=== PATIENT | female | born 1960 ===

== ENCOUNTER 2017-06-10 11:17 | Emergency (ER) | payer BC, OTHER ==
[2017-06-10] MEDS ORDERED: Ibuprofen 600 MG Tab PO ONE (11:37)
--- NOTE | 2017-06-10 11:49 | EDM.PDOC ---
ED HPI GENERAL MEDICAL PROBLEM - General Chief Complaint: Lower Extremity Injury/Pain Stated Complaint: FOOT INJURY Time Seen by Provider: 06/10/17 11:30 Source of Information: Reports: Patient History Limitations: Reports: No Limitations - History of Present Illness INITIAL COMMENTS - FREE TEXT/NARRATIVE: 56-year-old female presents for evaluation and treatment of pain to the right lateral foot. Apparently the injury occurred about 1045 this morning. 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 She reports immediate pain to the right lateral foot. She has able to bear weight on the foot but this causes significant pain and she has been limping. No numbness or tingling to the foot. Pain with range of motion. Bruising present to the lateral foot. No previous injury. Onset: Today Onset Date: 06/10/17 Onset Time: 10:45 Location: Reports: Lower Extremity, Right Right Feet Pain Score (Numeric/FACES): 6 - Related Data Allergies Allergy/AdvReac Type Severity Reaction Status Date / Time No Known Allergies Allergy Verified 05/15/14 12:59 Home Meds: Home Meds Alendronate Sodium [Alendronate] 70 mg PO ASDIRECTED 05/15/14 [History] Ascorbate Calcium [Vitamin C] 500 mg PO DAILY 05/15/14 [History] Calcium Carbonate/Vitamin D3 [Calcium 600-Vit D3 400 Tablet] 2 tab PO DAILY 05/19 [History] Cholecalciferol (Vitamin D3) [Vitamin D3] 2,000 units PO DAILY 05/15/14 [History ] Eletriptan [Relpax] 40 mg PO ASDIRECTED PRN 05/15/14 [History] Potassium Chloride [Klor-Con 10] 10 meq PO DAILY 05/15/14 [History] Vitamin E 400 units PO DAILY 05/15/14 [History] Acetaminophen/HYDROcodone [Lynd 325-5 MG] 1 tab PO Q6H PRN #15 tablet 06/10/17 [Rx] Past Medical History Musculoskeletal History: Reports: Other (See Below) Other Musculoskeletal History: osteopenia Neurological History: Reports: Migraines Oncologic (Cancer) History: Reports: Breast - Past Surgical History Cardiovascular Surgical History: Reports: Other (See Below) Other Cardiovascular Surgeries/Procedures: low potassiuim level unknown reason Social & Family History - Tobacco Use Smoking Status *Q: Never Smoker - Caffeine Use Caffeine Use: Reports: Soda - Alcohol Use Days Per Week of Alcohol Use: 0 Number of Drinks Per Day: 0 Total Drinks Per Week: 0 - Recreational Drug Use Recreational Drug Use: No Drug Use in Last 12 Months: No - Living Situation & Occupation Living situation: Reports: Occupation: Employed Review of Systems - Review of Systems Review Of Systems: See Below Musculoskeletal: Reports: Foot Pain (right lateral foot), Other (decreased ROM ) Skin: Reports: Bruising (right lateral foot). Denies: Wound Neurological: Reports: Difficulty Walking. Denies: Numbness, Tingling ED EXAM, GENERAL - Physical Exam Exam: See Below Exam Limited By: No Limitations General Appearance: Alert, WD/WN, No Apparent Distress Respiratory/Chest: No Respiratory Distress Cardiovascular: Normal Peripheral Pulses, Regular Rate, Rhythm Peripheral Pulses: 2+: Posterior Tibial (R), Dorsalis Pedis (R) Extremities: Normal Inspection, Normal Capillary Refill, Limited Range of Motion (pain with dorsiflexion and wiggling toes), Other (significant tenderness to palpation to the right proximal 5th metatarsal) Neurological: Alert, Oriented, Normal Cognition Psychiatric: Normal Affect, Normal Mood Skin Exam: Warm, Dry, Normal Color, Ecchymosis (right lateral foot approximately 7 x 4 cm ) Course - Vital Signs Last Recorded V/S: Last Vital Signs Temp 36.6 C 06/10/17 11:22 Pulse 67 06/10/17 11:22 Resp 20 06/10/17 11:22 BP 144/77 H 06/10/17 11:22 Pulse Ox 99 06/10/17 11:22 - Orders/Labs/Meds Orders: Active Orders 24 hr Category Date Time Status Foot Comp Min 3V Rt [CR] Stat Exams 06/10/17 11:37 Ordered Meds: Medications Discontinued Medications Generic Name Dose Route Start Last Admin Trade Name Freq PRN Reason Stop Dose Admin Ibuprofen 600 mg 06/10/17 11:37 06/10/17 11:47 Motrin PO 06/10/17 11:38 600 mg ONETIME ONE Administration - Radiology Interpretation Free Text/Narrative:: xray of the right foot shows a nondisplaced proximal 5th metatarsal fracture - Re-Assessments/Exams Free Text/Narrative Re-Assessment/Exam: 06/10/17 12:13 I reviewed the xrays with the patient. Will put in a walking boot and crutches. Follow-up with orthopedics this week. Given the nature of her job I am concerned she cannot preform her job safely while on crutches. Note given for work. Discharge instructions as documented. Departure - Departure Time of Disposition: 12:13 Disposition: Home, Self-Care 01 Condition: Fair Clinical Impression: Metatarsal fracture Qualifiers: Encounter type: initial encounter Metatarsal bone: fifth Fracture type: closed Fracture alignment: nondisplaced Laterality: right Qualified Code(s): S92.354A - Nondisplaced fracture of fifth metatarsal bone, right foot, initial encounter for closed fracture - Discharge Information Prescriptions: Acetaminophen/HYDROcodone [Lynd 325-5 MG] 1 tab PO Q6H PRN #15 tablet PRN Reason: Pain Referrals: Leatha Fountain [employer] [Primary Care Provider] - Seven Fuller MD [Physician] - Forms: ED Department Discharge, ED Return to Work/School Form Additional Instructions: [id number] Tylenol or Motrin as needed for pain relief. Do not take more than 4 g Tylenol from all sources in 1 day. Do not take more than 3200 mg of Motrin from all sources in 1 day. May take Lynd one to 2 tabs every 4-6 hours as needed for severe pain. Again, do not take more than 4 g of Tylenol in [address] operate machinery within 8 hours of taking Lynd. Lynd can be habit-forming, I recommend you take as few of these as needed to control your pain. Ice the foot 4-6 times a day for 10-15 minutes. Where the walking boot and utilize crutches. Off the foot as much as possible. Follow-up with orthopedics this week. Please call [phone] Fuller. Please return to the ER if your symptoms change or worsen. Note given for work. - My Orders Last 24 Hours: My Active Orders 06/10/17 11:37 Foot Comp Min 3V Rt [CR] Stat - Assessment/Plan Last 24 Hours: My Active Orders 06/10/17 11:37 Foot Comp Min 3V Rt [CR] Stat
--- NOTE | 2017-06-11 07:38 | CR ---
Right foot: Three views of the right foot were obtained. Comparison: No prior foot exam. Fracture is identified within the proximal shaft of the fifth metatarsal. Alignment remains anatomic. Small plantar spur is seen. No additional fracture or other bony abnormality is appreciated. Impression: 1. Nondisplaced fracture involving the proximal shaft of the fifth metatarsal. 2. Small plantar spur. Diagnostic code #3
== END 2017-06-10 12:40 | disposition home or self-care (01) ==
LOC: JD.ED 11:17
DX: S92.354A Nondisplaced fracture of fifth metatarsal bone, right foot, initial encounter for closed fracture (principal); Z79.899 Other long term (current) drug therapy; X50.1XXA Overexertion from prolonged static or awkward postures, initial encounter
CPT/HCPCS: 73630; 99283; A9270

== ENCOUNTER 2022-12-05 06:14 | Day surgery (SDC) | payer BC ==
[~2022-12-05 06:14] MED LIST: Lactated Ringers 1,000 ML IV SCH; Lidocaine 1%/Sod Bicarbonate in NS 8.4% 1 ML Syringe IDERM PRN; Sodium Chloride 0.9% 10 ML Syringe FLUSH PRN; Sodium Chloride 0.9% 10 ML Syringe FLUSH SCH
[2022-12-05] MEDS ORDERED: Propofol 200 MG/20 ML SDV ONE ×2 (06:49)
[2022-12-05] MEDS ORDERED: Midazolam 1 MG/ML 2 ML SDV ONE (06:49)
[2022-12-05] MEDS ORDERED: fentaNYL 100 MCG/2 ML SDV ONE (06:49)
== END 2022-12-05 08:35 | disposition home or self-care (01) ==
LOC: JD.SDS 06:14
PROVIDERS: ATTEND Family Medicine
DX: Z12.11 Encounter for screening for malignant neoplasm of colon (principal); F41.9 Anxiety disorder, unspecified; E78.5 Hyperlipidemia, unspecified; G47.00 Insomnia, unspecified; G43.909 Migraine, unspecified, not intractable, without status migrainosus; M81.0 Age-related osteoporosis without current pathological fracture; M85.80 Other specified disorders of bone density and structure, unspecified site; E55.9 Vitamin D deficiency, unspecified; Z79.899 Other long term (current) drug therapy; Z90.710 Acquired absence of both cervix and uterus
CPT/HCPCS: 45378; J2250; J2704; J3010; J7120; J3490

== ENCOUNTER 2024-07-22 08:13 | Inpatient (IN) | payer BC ==
[2024-07-22] MEDS: diphenhydrAMINE 50 MG/ML SDV IVPUSH ONE (09:25)
[2024-07-22] MEDS: Sodium Chloride 0.9% 10 ML Syringe FLUSH PRN ×2 (09:27→11:09)
[2024-07-22] MEDS: droPERidol 5 MG/2 ML SDV IVPUSH ONE (09:38)
[2024-07-22 09:42] LABS: HEMATOCRIT 39.1 % (37.0-47.0); HEMOGLOBIN 12.9 gm/dl (12.0-16.0); MEAN CORPUSCULAR HEMOGLOBIN 32.7 pg (28.0-32.0); PLATELET COUNT,PLT 121 K/mm3 (150-400); RED BLOOD CELL COUNT 3.95 M/mm3 (4.10-5.30); WHITE BLOOD CELL COUNT,WBC 4.63 K/mm3 (3.9-11.3)
[2024-07-22] MEDS: Sodium Chloride 0.9% 1,000 ML IV SCH ×2 (10:00→15:15)
[2024-07-22 10:04] LABS: A/G RATIO 1.1 (1-2); ALANINE AMINOTRANSFERASE,ALT 47 U/L (14-59); ALKALINE PHOSPHATASE 61 U/L (46-116); ANION GAP 9.8 (5-15); ASPARTATE AMNIOTRANSFERASE,AST 53 U/L (15-37); BILIRUBIN TOTAL 1.9 mg/dL (0.2-1.0); BLOOD UREA NITROGEN,BUN 16 mg/dL (7-18); BUN/CREATININE RATIO 22.9 (14-18); CALCIUM 8.7 mg/dL (8.5-10.1); CARBON DIOXIDE,CO2 28 mEq/L (21-32); CHLORIDE,CL 91 mEq/L (98-107); CREATININE 0.7 mg/dL (0.55-1.02); ESTIMATED GFR 98 mL/min (>60); GLUCOSE RANDOM 107 mg/dL (70-99); PROTEIN TOTAL,TP 7.6 g/dl (6.4-8.2); SODIUM,NA 125 mEq/L (136-145); TROPONIN I HIGH SENSITIVITY 10 pg/mL (<=51); TSH 1.016 uIU/mL (0.358-3.74)
[2024-07-22 10:08] LABS: POTASSIUM,K 3.8 mEq/L (3.5-5.1)
[2024-07-22 10:41] LABS: BAND PERCENT MAN 2 % (0-10); BASOPHILS PERCENT MAN 0 (0.1-1.2); EOSINOPHILS PERCENT MAN 0 % (0.7-5.8); LYMPHOCYTES % ATYPICAL MANUAL 1 %; LYMPHOCYTES PERCENT MAN 14 % (20-40); METAMYELOCYTE PERCENT MAN 1; MONOCYTES PERCENT MAN 4 % (2-10); MYELOCYTE PERCENT MAN 1
[2024-07-22 10:48] LABS: PLATELET COUNT ESTIMATE DECREASED
[2024-07-22] MEDS: Sodium Chloride 0.9% 100 ML IV SCH (11:09)
[2024-07-22] MEDS: LORazepam 2 MG/ML SDV IVPUSH ONE (11:10)
[2024-07-22] MEDS: Iopamidol 755 Mg/ML 100 ML Bottle IVPUSH ONE (11:10)
[2024-07-22] MEDS: Gadobenate Dimeglumine 529 MG/ML 15 ML SDV IVPUSH ONE (11:36)
[2024-07-22] MEDS: Sodium Chloride 0.9% 10 ML Syringe FLUSH SCH (11:36)
[2024-07-22 12:05] LABS: BASE EXCESS VENOUS -0.1 (-4.0-2.0); BICARBONATE,VENOUS 25.1 meq/L (22-26); O2 SATURATION VENOUS 79.5; PCO2 VENOUS 45.7 mmHg (41-51); PH,VENOUS 7.36 (7.30-7.40)
[2024-07-22] MEDS: Dexamethasone 4 MG/ML 5 ML MDV IV ONE (13:40)
[2024-07-22] MEDS: Ketorolac 15 MG/ML SDV IVPUSH ONE (13:45)
[2024-07-22] MEDS ORDERED: Naloxone 0.4 MG/ML SDV IVPUSH PRN (13:58)
[2024-07-22] MEDS: HYDROmorphone 1 MG/ML Syringe IVPUSH ONE (14:06)
[2024-07-22] MEDS: Ondansetron 4 MG/2 ML SDV IVPUSH ONE (14:15)
[2024-07-22] MEDS ORDERED: fentaNYL 100 MCG/2 ML SDV IVPUSH PRN (14:44)
[2024-07-22] MEDS: HYDROmorphone 1 MG/ML Syringe IVPUSH PRN (16:35)
[2024-07-22 18:33] LABS: ANION GAP 11.8 (5-15); BUN/CREATININE RATIO 17.5 (14-18); CALCIUM 8.1 mg/dL (8.5-10.1); CREATININE 0.8 mg/dL (0.55-1.02); EST CRCL DRUG DOSING (CG) 69.13 mL/min; POTASSIUM,K 3.8 mEq/L (3.5-5.1)
[2024-07-22 18:35] LABS: SODIUM,URINE RANDOM 89 mEq/L (40-220)
[2024-07-22 18:46] LABS: OSMOLALITY,URINE 651 mosm/kg (400-1100)
[2024-07-22] MEDS: Ondansetron 4 MG/2 ML SDV IVPUSH PRN (20:07)
[2024-07-22] MEDS: Metoclopramide 10 MG/2 ML SDV IVPUSH PRN (23:51)
[2024-07-23 06:42] LABS: ALBUMIN 3.1 g/dl (3.4-5.0); ANION GAP 10.2 (5-15); BILIRUBIN TOTAL 1.2 mg/dL (0.2-1.0); CALCIUM 7.7 mg/dL (8.5-10.1); CREATININE 0.6 mg/dL (0.55-1.02); EST CRCL DRUG DOSING (CG) 92.18 mL/min; POTASSIUM,K 4.2 mEq/L (3.5-5.1); PROTEIN TOTAL,TP 6.1 g/dl (6.4-8.2)
[2024-07-23] MEDS: Rosuvastatin 10 MG Tab PO SCH (07:55)
[2024-07-23] MEDS: Citalopram 20 MG Tab PO SCH (07:55)
[2024-07-23] MEDS: Metoclopramide 10 MG/2 ML SDV IVPUSH SCH (07:56)
[2024-07-23] MEDS: Enoxaparin 40 MG/0.4 ML Syringe SUBCUT SCH (07:56)
[2024-07-23 12:22] LABS: ANION GAP 10.6 (5-15); CALCIUM 7.8 mg/dL (8.5-10.1); CREATININE 0.6 mg/dL (0.55-1.02); EST CRCL DRUG DOSING (CG) 92.18 mL/min; POTASSIUM,K 3.6 mEq/L (3.5-5.1)
[2024-07-23] MEDS: diphenhydrAMINE 50 MG/ML SDV IVPUSH PRN (12:57)
[2024-07-23] MEDS: Sodium Chloride 1 GM Tab PO SCH (13:56)
[2024-07-23 18:44] LABS: ANION GAP 7.4 (5-15); BUN/CREATININE RATIO 24.3 (14-18); CALCIUM 7.7 mg/dL (8.5-10.1); CREATININE 0.7 mg/dL (0.55-1.02); EST CRCL DRUG DOSING (CG) 79.01 mL/min; POTASSIUM,K 3.4 mEq/L (3.5-5.1)
[2024-07-23] MEDS: Potassium Chloride 20 MEQ Tab.ER PO ONE (19:51)
[2024-07-23] MEDS: Acetaminophen 325 MG Tab PO PRN (19:52)
[2024-07-23] MEDS: Sodium Chloride 3% 50 ML IV ONE (20:23)
[2024-07-24] MEDS: Zolpidem 10 MG Tab PO PRN (00:15)
[2024-07-24 00:31] LABS: ANION GAP 7.9 (5-15); BUN/CREATININE RATIO 22.9 (14-18); CALCIUM 7.7 mg/dL (8.5-10.1); CREATININE 0.7 mg/dL (0.55-1.02); EST CRCL DRUG DOSING (CG) 79.01 mL/min; POTASSIUM,K 3.9 mEq/L (3.5-5.1)
[2024-07-24 06:39] LABS: ALBUMIN 3.2 g/dl (3.4-5.0); ANION GAP 8.1 (5-15); BILIRUBIN TOTAL 1.2 mg/dL (0.2-1.0); CALCIUM 7.9 mg/dL (8.5-10.1); CREATININE 0.6 mg/dL (0.55-1.02); EST CRCL DRUG DOSING (CG) 92.18 mL/min; MAGNESIUM 1.8 mg/dL (1.8-2.4); POTASSIUM,K 4.1 mEq/L (3.5-5.1); PROTEIN TOTAL,TP 6.3 g/dl (6.4-8.2)
[2024-07-24] MEDS: oxyCODONE 5 MG Tab PO PRN (09:04)
[2024-07-24] MEDS: SUMAtriptan 50 MG Tab PO PRN (11:09)
[2024-07-24 14:36] LABS: ANION GAP 10.9 (5-15); BUN/CREATININE RATIO 16.3 (14-18); CALCIUM 8.5 mg/dL (8.5-10.1); CREATININE 0.8 mg/dL (0.55-1.02); EST CRCL DRUG DOSING (CG) 69.13 mL/min; POTASSIUM,K 3.9 mEq/L (3.5-5.1)
[2024-07-24] MEDS: Cyclobenzaprine 10 MG Tab PO PRN (15:09)
[2024-07-24] MEDS: HYDROmorphone 1 MG/ML Syringe IVPUSH ONE (17:50)
[2024-07-25 08:23] LABS: A/G RATIO 0.9 (1-2); ALBUMIN 3.1 g/dl (3.4-5.0); BILIRUBIN TOTAL 1.6 mg/dL (0.2-1.0); BUN/CREATININE RATIO 11.4 (14-18); CALCIUM 8.2 mg/dL (8.5-10.1); CREATININE 0.7 mg/dL (0.55-1.02); EST CRCL DRUG DOSING (CG) 79.01 mL/min; PROTEIN TOTAL,TP 6.4 g/dl (6.4-8.2)
[2024-07-25] MEDS: Docusate Sodium 100 MG Cap PO PRN (09:55)
[2024-07-25] MEDS: Furosemide 20 MG/2 ML VIAL IVPUSH ONE (09:55)
[2024-07-25] MEDS: methylPREDNISolone Sodium Succinate 40 MG/1 ML SDV IVPUSH ONE (09:55)
[2024-07-25 17:11] LABS: ANION GAP 9.8 (5-15); BUN/CREATININE RATIO 12.5 (14-18); CALCIUM 8.9 mg/dL (8.5-10.1); CREATININE 0.8 mg/dL (0.55-1.02); EST CRCL DRUG DOSING (CG) 69.13 mL/min; POTASSIUM,K 3.8 mEq/L (3.5-5.1)
[2024-07-26 05:54] LABS: HEMOGLOBIN 11.5 gm/dl (12.0-16.0); MEAN CORPUSCULAR HEMOGLOBIN 32.9 pg (28.0-32.0); MEAN CORPUSCULAR HGB CONC 34.8 g/dl (32.0-36.0); MEAN PLATELET VOLUME 9.3 fl (9.4-12.3); PLATELET COUNT,PLT 180 K/mm3 (150-400); WHITE BLOOD CELL COUNT,WBC 5.13 K/mm3 (3.9-11.3)
[2024-07-26 06:05] LABS: A/G RATIO 0.9 (1-2); ANION GAP 9.3 (5-15); BILIRUBIN TOTAL 1.3 mg/dL (0.2-1.0); BUN/CREATININE RATIO 21.7 (14-18); CALCIUM 8.3 mg/dL (8.5-10.1); CREATININE 0.6 mg/dL (0.55-1.02); EST CRCL DRUG DOSING (CG) 92.18 mL/min; MEAN CORPUSCULAR VOLUME 94.3 fl (83.0-99.0); POTASSIUM,K 3.3 mEq/L (3.5-5.1); PROTEIN TOTAL,TP 6.3 g/dl (6.4-8.2)
[2024-07-26] MEDS ORDERED: Metoclopramide 10 MG/2 ML SDV IVPUSH PRN (08:01)
[2024-07-26] MEDS: Potassium Chloride 20 MEQ Tab.ER PO ONE (08:10)
[2024-07-26] MEDS ORDERED: Sodium Chloride 0.45% with KCl 1,000 ML IV SCH (09:15)
[2024-07-26] MEDS ORDERED: NS + KCl 20mEq/L 1,000 ML IV SCH (09:15)
[2024-07-26] MEDS ORDERED: ELETRIPTAN 40 MG PO PRN ×2 (09:19→09:22)
[2024-07-26] MEDS: NS + KCl 20mEq/L 500 ML IV SCH (09:26)
[2024-07-26] MEDS ORDERED: Sodium Chloride 0.9% 100 ML IV SCH (10:30)
[2024-07-26] MEDS: Iopamidol 755 Mg/ML 100 ML Bottle IVPUSH ONE (11:10)
[2024-07-26] MEDS: Ibuprofen 400 MG Tab PO PRN (16:10)
[2024-07-26] MEDS: methylPREDNISolone Sodium Succinate 40 MG/1 ML SDV IVPUSH ONE (17:28)
[2024-07-27 05:31] LABS: A/G RATIO 0.9 (1-2); ALBUMIN 3.1 g/dl (3.4-5.0); ANION GAP 9.2 (5-15); BUN/CREATININE RATIO 23.3 (14-18); C-REACTIVE PROTEIN 3.49 mg/dL (<0.30); CALCIUM 8.6 mg/dL (8.5-10.1); CREATININE 0.6 mg/dL (0.55-1.02); EST CRCL DRUG DOSING (CG) 92.18 mL/min; MAGNESIUM 1.8 mg/dL (1.8-2.4); PHOSPHORUS 2.7 mg/dL (2.6-4.7); POTASSIUM,K 4.2 mEq/L (3.5-5.1); PROTEIN TOTAL,TP 6.6 g/dl (6.4-8.2)
[2024-07-27 05:59] LABS: HEPATITIS C AB NON-REACTIVE (Non-React)
[2024-07-27 06:00] LABS: RHEUMATOID FACT.W/RFX TO TITER REACTIVE (NONREACTIVE)
[2024-07-27] MEDS ORDERED: Citalopram 10 MG Tab PO SCH ×2 (09:00→09:15)
[2024-07-27] MEDS ORDERED: Non-Formulary Medication 1 Each PO PRN (09:10)
[2024-07-27] MEDS: methylPREDNISolone Sodium Succinate 40 MG/1 ML SDV IVPUSH ONE (09:27)
[2024-07-27] MEDS: Propranolol 20 MG Tab PO SCH (09:49)
[2024-07-27] MEDS: Acetaminophen/Butalbital/Caffeine 325-50-40 MG Tab PO PRN (09:55)
[2024-07-27] MEDS: ESCITALOPRAM 10 MG PO SCH (10:52)
[2024-07-27] MEDS: Sodium Phosphate 30 MMOLE in Sodium Chloride 0.9% 250 ML IV ONE (10:53)
[2024-07-27 15:22] LABS: BUN/CREATININE RATIO 21.4 (14-18); CALCIUM 8.9 mg/dL (8.5-10.1); CREATININE 0.7 mg/dL (0.55-1.02); EST CRCL DRUG DOSING (CG) 79.01 mL/min
[2024-07-27] MEDS ORDERED: oxyCODONE 5 MG Tab PO PRN (17:01)
[2024-07-28 05:54] LABS: ANION GAP 10.5 (5-15); CALCIUM 8.5 mg/dL (8.5-10.1); CREATININE 0.7 mg/dL (0.55-1.02); EST CRCL DRUG DOSING (CG) 79.01 mL/min; PHOSPHORUS 3.2 mg/dL (2.6-4.7); POTASSIUM,K 3.5 mEq/L (3.5-5.1)
[2024-07-28] MEDS: Potassium Chloride 20 MEQ Tab.ER PO ONE (08:20)
[2024-07-28] MEDS: Ibuprofen 400 MG Tab PO PRN (08:27)
[2024-07-29 05:42] LABS: ACE 59 U/L (16-85)
[2024-07-29 10:42] LABS: ANTI-RNP, MAYO <0.2 U; ANTI-SCL70, MAYO <0.2 U; ANTI-SMITH, MAYO <0.2 U; ANTI-SSA, MAYO >8.0 U; ANTI-SSB, MAYO <0.2 U; JO-1 AB, IGG, MAYO <0.2 U
[2024-07-29 12:46] LABS: HEP B SURFACE AG Negative (Negative)
[2024-07-29 13:47] LABS: CYCLIC CITRUL PEPTIDE AB,IGG 4 Units (0-19)
[2024-07-30 04:46] LABS: ANTI-SCL70 1 AU/mL (0-40); SSA 52 AB, IGG 53 AU/mL (0-40); SSA 60 AB, IGG 102 AU/mL (0-40)
[2024-07-31 14:42] LABS: MYELOPEROXIDASE AB 0 AU/mL (0-19); SERINE PROTEINASE 3, IGG 0 AU/mL (0-19)
== END 2024-07-28 15:10 | disposition home or self-care (01) | DRG 426 ==
LOC: JD.ED 08:13 → JD.ICU 12:25
PROVIDERS: ADMIT Internal Medicine; ATTEND Student in an Organized Health Care Education/Training Program
DX: E22.2 Syndrome of inappropriate secretion of antidiuretic hormone (principal); D84.9 Immunodeficiency, unspecified; G43.909 Migraine, unspecified, not intractable, without status migrainosus; Z85.3 Personal history of malignant neoplasm of breast; Z79.899 Other long term (current) drug therapy; E78.00 Pure hypercholesterolemia, unspecified; M65.941 Unspecified synovitis and tenosynovitis, right hand; M65.942 Unspecified synovitis and tenosynovitis, left hand; F41.9 Anxiety disorder, unspecified; Z90.89 Acquired absence of other organs; Z90.710 Acquired absence of both cervix and uterus; Z98.82 Breast implant status; Z90.722 Acquired absence of ovaries, bilateral; Z90.10 Acquired absence of unspecified breast and nipple; M85.80 Other specified disorders of bone density and structure, unspecified site; M05.731 Rheumatoid arthritis with rheumatoid factor of right wrist without organ or systems involvement; F32.A Depression, unspecified
CPT/HCPCS: 36415; 70450; 70450-26; 70496; 70496-26; 70498; 70498-26; 70553; 70553-26; 71270; 71270-26; 74178; 74178-26; 80048; 80053; 82164; 82533; 82550; 82803; 83516; 83735; 83930; 83935; 84100; 84300; 84443; 84484; 85007; 85027; 85652; 86036; 86140; 86200; 86235; 86430; 86803; 87340; 87428-QW; 93005; 93010; 94761; 96361; 96374; 96375; 99284; 99285-25; A9270-GY; A9577; J1100; J1171; J1200; J1650; J1790; J1885; J1940; J2060; J2405; J2765; J2919; J3475; J3480; J3490; J7030; J7050; J7131; Q9967